=== PATIENT | male | born 1980 | race Caucasian/White ===

== ENCOUNTER 2021-04-09 18:06 | Emergency (ER) | payer BC ==
--- NOTE | 2021-04-09 21:27 | ER ---
Nurse's Notes [facility] Name: Yung Sierra Age: 40 yrs Sex: Male : 1980 Arrival Date: 04/09/2021 Time: 18:11 Bed Waiting Private MD: Diagnosis: ED Course: 04/09 18:11 Patient arrived in ED. bp1 20:05 Patient's name was called from ER lobby. No response. bb 20:55 Patient's name was called from ER lobby. No response. Unable to locate patient. Will bb disposition as left without being seen by a provider. Administered Medications: No medications were administered Outcome: 21:27 Patient left the ED. bb Signatures: La Dee RN RN bb Viki Craig bp1
== END 2021-04-09 21:27 | disposition left against medical advice (07) ==
LOC: ER 18:06
DX: Z02.9 Encounter for administrative examinations, unspecified (principal)